=== PATIENT | male | born 1945 | race Caucasian/White ===

== ENCOUNTER → 2022-03-13 08:53 | Outpatient (BNVA) | payer MEDICARE, SELFPAY | PROVIDERS: PCP Internal Medicine; Visit Provider Nurse Practitioner Family | DX: G20 Parkinson's disease (principal); R26.9 Unspecified abnormalities of gait and mobility; R29.898 Other symptoms and signs involving the musculoskeletal system; R20.2 Paresthesia of skin | CPT/HCPCS: 99202 ==

== ENCOUNTER → 2022-08-28 07:48 | Outpatient (BNVA) | payer MEDICARE, SELFPAY | PROVIDERS: PCP Internal Medicine; Visit Provider Nurse Practitioner Family | DX: G20 Parkinson's disease (principal); R26.9 Unspecified abnormalities of gait and mobility; R29.898 Other symptoms and signs involving the musculoskeletal system | CPT/HCPCS: 99212 ==

== ENCOUNTER 2023-02-02 09:46 | Outpatient (AMB) | payer MEDICARE, SELFPAY ==
--- NOTE | 2023-02-02 09:55 | MHC.OFFVIS ---
Intake Vital Signs 02/02/23 10:01 Weight 208 lb BP 120/82 Blood Pressure Location Lt brachial Position Sitting Pulse 67 Pulse Source Pulse Oximeter Pulse Oximetry (%) 97 Oxygen Delivery Method Room Air Intake Visit Reasons: 5m follow up Parkinson's - Confirmed Intake Note: F/U Parkinson Production Trainer Required: No Allergies No Known Allergies Allergy (Verified 02/02/23 09:57) Medication List - Last Reconciled 02/02/23 by ISAEL Renteria aspirin (Adult Low Dose Aspirin) 81 mg PO DAILY carbidopa-levodopa 25-100 mg ER 1 tab PO TID 30 days fluorouracil 5% appl topical BID metoprolol succinate ER 25 mg PO DAILY rasagiline 1 mg PO DAILY 30 days rosuvastatin 10 mg PO BEDTIME tadalafil 20 mg PO [tumeric 2,800 mg PO DAILY] HPI HPI Comments History of Present Illness Details 77 -yr-old male presents for f/u visit. Pt denies any significant interval medical history changes. Pt's current PD medication regimen: CD-LD 25-100mg ER 1 tab tid (am, afternoon, bedtime) Do medication effects last between doses: not sure- may be stiffer/slower after watching TV in the evening, but resolves once he moves around a bit ADL's: Ind- but slow Swallowing/Cough: Coughing at times- usually w/ liquids. Tries to do strategies. Drooling: A bit more drooling Orthostatic lightheadedness: Rare, mild, transient Constipation: Has not needed to use any OTC stool softeners Freezing: Only on stairs or step ladder. Stiffness: Some stiffness- thinks r/t his arthritis Tremor: A bit more tremor in his hands- if say holding something. Falls: None. Legs may be a bit weaker, more difficulty getting up from the ground if playing with his dogs Hallucinations: None Memory: Recently noticing some difficulty recalling- such as not remember a well known lock combination. Sleep: Sleeps ok overall- uses marijuana vape at times Exercise: Could exercise more. Walking and playing basketball. [facility] Medical History (Updated 03/13/22 @ 14:11 by ISAEL Renteria) Chronic back pain Heart disease High cholesterol HTN (hypertension) Tremor Surgical History H/O Spinal surgery Hx of heart artery stent Family History Father Heart disease Mother Heart disease Brother Heart disease Social History (Updated 02/02/23 @ 10:01 by Qi Taylor [facility]) Alcohol intake: never Patient Tobacco Use Status: Never used Tobacco Review of Systems Const All systems reviewed & are unremarkable except as noted in HPI and below Physical Exam Vital Signs: Last Vital Signs Pulse 67 02/02/23 10:01 BP 120/82 02/02/23 10:01 Pulse Ox 97 02/02/23 10:01 Oxygen Delivery Method Room Air 02/02/23 10:01 Const General: cooperative and no acute distress Resp Effort & Inspection: normal respiratory effort and able to speak in complete sentences Neuro Other: Expression: Good expression Voice: Softer Tremor: No significant tremor Tone: Mild LUE tone Dyskinesia: None FFM: LUE mild bradykinesia Foot taps: LLE bradykinesia Gait: Stands slowly, decreased arm swing- more so on left, stride ok, low floor clearance, steady gait. Psych: Pleasant affect General: patient oriented x3 Assessment & Plan Assessment & Plan (1) Parkinson's disease: Code(s): G20 - Parkinson's disease (2) Gait difficulty: Code(s): R26.9 - Unspecified abnormalities of gait and mobility (3) Paresthesia of both feet: Code(s): R20.2 - Paresthesia of skin Plan Continue CD-LD ER 25-100mg 1 tab tid- taken w/ small amt CHO. Conised increasing in f/u. Continue Rasagiline 1mg qd. Past PD Tx trials- Sinemet- caused nausea. Reviewed safe swallwoing strategies- consider TAR DISTRIBUTOR OPERATOR referal- pt declines at this time. Continue playing basketball, walking. Try adding PD specific exercises. Monitor cognition. ?f/u in 6 months or sooner prn. Coding Level of Care Code Est Pt Level 4 (72655) Diagnoses Parkinson's disease G20 Gait difficulty R26.9 Paresthesia of both feet R20.2
[2023-02-02 10:01] VITALS: BP 120/82; PULSE 67; O2SAT 97
== END 2023-02-02 11:04 | disposition home or self-care (01) ==
PROVIDERS: Visit Provider Nurse Practitioner Family
DX: G20 Parkinson's disease (principal); R26.9 Unspecified abnormalities of gait and mobility; R20.2 Paresthesia of skin
CPT/HCPCS: 99214

== ENCOUNTER → 2023-02-02 09:46 | Outpatient (BNVA) | payer MEDICARE, SELFPAY | PROVIDERS: Visit Provider Nurse Practitioner Family | DX: G20 Parkinson's disease (principal); R26.9 Unspecified abnormalities of gait and mobility; R20.2 Paresthesia of skin | CPT/HCPCS: 99212 ==

== ENCOUNTER 2023-08-03 10:40 | Outpatient (AMB) | payer MEDICARE, SELFPAY ==
--- NOTE | 2023-08-03 10:50 | A.OFFVIS_ITS ---
Intake Vital Signs 08/03/23 10:57 Height 5 ft 10 in BP 126/78 Blood Pressure Location Rt brachial Position Sitting Pulse 73 Pulse Source Pulse Oximeter Pulse Oximetry (%) 98 Oxygen Delivery Method Room Air Intake Visit Reasons: 6m follow up Parkinson's-LVM Intake Note: Patient presents for follow up parkinson's. I just want to get a better feel of the background of all this, I just started this new class called rock steady a lot of boxing Allergies No Known Allergies Allergy (Verified 08/03/23 11:00) Medication List - Last Reconciled 08/03/23 by ISAEL Renteria amlodipine 5 mg PO DAILY aspirin (Adult Low Dose Aspirin) 81 mg PO DAILY carbidopa-levodopa 25-100 mg ER 1 tab PO TID 30 days fluorouracil 5% appl topical BID lisinopril 40 mg PO DAILY metoprolol succinate ER 25 mg PO DAILY rasagiline 1 mg PO DAILY 30 days rosuvastatin 10 mg PO BEDTIME tadalafil 20 mg PO [tumeric 2,800 mg PO DAILY] HPI HPI Comments History of Present Illness Details 77 -yr-old male presents for f/u visit. Pt denies any significant interval medical history changes. Pt's current PD medication regimen: CD-LD 25-100mg ER 1 tab tid (am, afternoon, bedtime). Effect ususally lasts between doses, may notice wearing off if very late taking midday dose. ADL's: Ind- but slow Swallowing/Cough: Stable- coughing at times- usually w/ liquids. Tries to do strategies. Drooling: Some drooling Orthostatic lightheadedness: Rare, mild, transient Constipation: Recently had some bad constipation- used MOM which helped. He has since started OTC Mag Citrate cap. Freezing: Not recently Stiffness: Some stiffness. Tremor: Varies- good days and bad days- stress exacerbates tremor. May notice when holding a glass or something. Falls: None. Can be off-balance. Hallucinations: None Memory: Some difficulty recalling. Sleep: Can have some difficulty falling asleep. not using marijuana vape as much. Takes 1 cup of coffee qam. Takes 1/2 nap early afternoon. Wakes up around 7am, bedtime 10:30pm. No TV or electronics in bed. Tries to watch TV until he is tired- sometimes. Trying to make a better bedtime routine- taking shower at bedtime. Exercise: Just started Rock Steady Boxing. Walking and playing basketball. [facility] Medical History (Updated 08/03/23 @ 21:22 by ISAEL Renteria) Parkinson's disease Chronic back pain Tremor High cholesterol HTN (hypertension) Heart disease Surgical History Hx of heart artery stent H/O Spinal surgery Family History Father Heart disease Mother Heart disease Brother Heart disease Social History (Updated 02/02/23 @ 10:01 by Qi Taylor [facility]) Alcohol intake: never Patient Tobacco Use Status: Never used Tobacco Review of Systems Const All systems reviewed & are unremarkable except as noted in HPI and below Physical Exam Vital Signs: Last Vital Signs Pulse 73 08/03/23 10:57 BP 126/78 08/03/23 10:57 Pulse Ox 98 08/03/23 10:57 Oxygen Delivery Method Room Air 08/03/23 10:57 Const General: cooperative and no acute distress Resp Effort & Inspection: normal respiratory effort and able to speak in complete sentences Neuro Other: General: patient oriented x3 Expression: Good expression Voice: Softer Tremor: Mild LUE postural tremor Tone: Mild LUE tone Dyskinesia: None FFM: LUE mild bradykinesia Foot taps: LLE bradykinesia Gait: Stands slowly, decreased arm swing- more so on left, stride ok, low floor clearance- more so on left, steady gait. Psych: Pleasant affect Assessment & Plan Assessment & Plan (1) Parkinson's disease without dyskinesia: Comment: Dx in 2016. DaTscan positive. Code(s): G20.A1 - Parkinson's disease without dyskinesia, without mention of fluctuations (2) Sleep difficulties: Code(s): G47.9 - Sleep disorder, unspecified Plan Continue CD-LD ER 25-100mg 1 tab tid- taken w/ small amt CHO. Continue Rasagiline 1mg qd. For sleep- try staying up until tired, continue optimizing bedtime routine, may try melatonin 3-6mg q evening. Continue safe swallowing strategies. Continue playing basketball, walking. Continue PD exercise class. Monitor cognition. Past PD Tx trials- Sinemet IR- caused nausea. ?f/u in 6 months or sooner prn. Medications: Refilled rasagiline 1 mg PO DAILY 30 tabs 6RF 30 days carbidopa-levodopa 25-100 mg ER take w/ cracker 1 tab PO TID 90 tabs 6RF 30 days Coding Level of Care Code Est Pt Level 4 (80117) Diagnoses Parkinson's disease without dyskinesia G20.A1 Sleep difficulties G47.9
[2023-08-03 10:57] VITALS: BP 126/78; PULSE 73; O2SAT 98
== END 2023-08-03 12:07 | disposition home or self-care (01) ==
PROVIDERS: PCP Internal Medicine; Visit Provider Nurse Practitioner Family
DX: G20.A1 Parkinson's disease without dyskinesia, without mention of fluctuations (principal); G47.9 Sleep disorder, unspecified
CPT/HCPCS: 99214

== ENCOUNTER → 2023-08-03 10:40 | Outpatient (BNVA) | payer MEDICARE, SELFPAY | PROVIDERS: PCP Internal Medicine; Visit Provider Nurse Practitioner Family | DX: G20.A1 Parkinson's disease without dyskinesia, without mention of fluctuations (principal); G47.9 Sleep disorder, unspecified | CPT/HCPCS: 99212 ==

== ENCOUNTER 2024-02-03 10:49 | Outpatient (AMB) | payer MEDICARE, SELFPAY ==
--- NOTE | 2024-02-03 10:59 | A.OFFVIS_ITS ---
Vital Signs 02/03/24 11:01 Height 5 ft 10 in Weight 204 lb BMI 29.3 BP 124/82 Blood Pressure Location Rt brachial Position Sitting Intake Visit Reasons: 6m follow up Parkinson's Intake Note: Patient presents for follow up. things are progressing affecting my balance taking a boxing class for coordination. Allergies No Known Allergies Allergy (Verified 02/03/24 11:03) HPI Comments Details: 78-yr-old male presents for f/u visit for Parkinson's. Pt denies any significant interval medical history changes. Pt does note that his PD is progressing some. He is still having balance difficulties. He has stopped drinking alcohol in the past 1.5 months- as he was niticing being affected more strongly by 1-2 drinks (stronger vodka and juice drink)- where if he drank 2 drinks, he might remember what he was doing. Pt's current PD medication regimen: CD-LD 25-100mg ER 1 tab tid (am, afternoon, bedtime). Rasagiline 1mg qd. Effect usually lasts between doses. If he does miss a midday dose, he has not noticed wearing off. ADL's: Ind- but slow Swallowing/Cough: Coughing a bit more- usually w/ liquids but also solids. Tries to do safe swallowing strategies, which helps. Has not done ELECTRICIAN AIRCRAFT yet. Drooling: Some drooling Orthostatic lightheadedness: Mild, transient. Constipation: Metamucil gummies (3 per day) has been helping constipation. Urinary symptoms: Denies Freezing: Not recently Stiffness: Some stiffness. Tremor: Varies. Leg may shake when standing and talking w/ someone. Stress exacerbates tremor. May notice when holding a glass or something. Falls: One fall, fell going down a couple of steps- thinks he might have missed a step. Hallucinations: None Memory: Noticing a bit more forgetfulness, such as forgetting a password or combination to a lock. He is now keeping a note log of these things. Mood: Some days he can feel down. Denies SI. Feeling a bit more apprehensive about traveling alone- for instance will be traveling to the [facility] to meet up w/ his brothers. Sleep: Varies, but overall ok. May use marijuana sleep gummy prn. Exercise: Continues to do Rock Steady Boxing, which he likes. Walking and playing basketball. [facility] Medical History (Updated 02/03/24 @ 12:36 by ISAEL Renteria) Parkinson's disease Chronic back pain Tremor High cholesterol HTN (hypertension) Heart disease Surgical History Hx of heart artery stent H/O Spinal surgery Family History Father Heart disease Mother Heart disease Brother Heart disease Social History Alcohol intake: never Patient Tobacco Use Status: Never used Tobacco Review of Systems Const All systems reviewed & are unremarkable except as noted in HPI and below Physical Exam Vital Signs: Last Vital Signs BP 124/82 02/03/24 11:01 BMI result Body Mass Index 29.3 Const General: cooperative and no acute distress Resp Effort & Inspection: normal respiratory effort and able to speak in complete sentences Neuro Other: General: patient oriented x3 Expression: Good expression Voice: Softer Tremor: No LUE postural tremor observed today. Mild LLE rest tremor. Tone: Mild LUE tone Dyskinesia: None FFM: LUE mild bradykinesia Foot taps: LLE bradykinesia Gait: Stands slowly, decreased arm swing- more so on left, stride ok, low floor clearance- more so on left, steady gait. Psych: Pleasant affect Assessment & Plan Assessment & Plan (1) Parkinson's disease without dyskinesia: Comment: Dx in 2016. DaTscan positive. Code(s): G20.A1 - Parkinson's disease without dyskinesia, without mention of fluctuations Category: Medical (2) Gait difficulty: Code(s): R26.9 - Unspecified abnormalities of gait and mobility Category: Medical (3) Dysphagia: Code(s): R13.10 - Dysphagia, unspecified Category: Medical Plan Increase CD-LD ER 25-100mg from 1 tab tid to 1 tab QID- taken w/ small amt CHO. In hopes this improves dysphagia, balance, and cognitive s/s. Continue Rasagiline 1mg qd. Monitor sleep. Increase fluids, ass electrolyte replacement beverage 16-20oz per day, such as Gatorade or Liquid IV. Offered referral for MBS and ELECTRICIAN AIRCRAFT eval & tx- pt declines at this time. Continue safe swallowing strategies. Continue playing basketball, walking. Continue PD exercise class. Increase cognitively stimulating activities. Concur w/ alcohol cessation. Monitor cognition. Past PD Tx trials- Sinemet IR- caused nausea. ?f/u in 6 months or sooner prn. Medications: Changed From carbidopa-levodopa 25-100 mg ER take w/ cracker 1 tab PO TID 30 days 90 tabs 6RF To carbidopa-levodopa 25-100 mg ER take w/ cracker 1 tab PO QID 30 days 120 tabs 6RF Refilled rasagiline 1 mg PO DAILY 30 days 30 tabs 6RF Coding Level of Care Code Est Pt Level 4 (76633) Diagnoses Parkinson's disease without dyskinesia G20.A1 Gait difficulty R26.9 Dysphagia R13.10
[2024-02-03 11:01] VITALS: BP 124/82; BMI 29.3
== END 2024-02-03 11:53 | disposition home or self-care (01) ==
PROVIDERS: PCP Hospitalist; Visit Provider Nurse Practitioner Family
DX: G20.A1 Parkinson's disease without dyskinesia, without mention of fluctuations (principal); R26.9 Unspecified abnormalities of gait and mobility; R13.10 Dysphagia, unspecified
CPT/HCPCS: 99214

== ENCOUNTER → 2024-02-03 10:49 | Outpatient (BNVA) | payer MEDICARE, SELFPAY | PROVIDERS: PCP Hospitalist; Visit Provider Nurse Practitioner Family | DX: G20.A1 Parkinson's disease without dyskinesia, without mention of fluctuations (principal); R26.9 Unspecified abnormalities of gait and mobility; R13.10 Dysphagia, unspecified | CPT/HCPCS: 99212 ==

== ENCOUNTER 2024-08-03 13:05 | Outpatient (AMB) | payer OTHER, SELFPAY ==
--- NOTE | 2024-08-03 13:21 | MHC.OFFVIS ---
Vital Signs 08/03/24 13:22 Height 5 ft 10 in Weight 208 lb BMI 29.8 BP 98/70 Blood Pressure Location Lt brachial Position Sitting Pulse 73 Pulse Source Pulse Oximeter Pulse Oximetry (%) 94 Oxygen Delivery Method Room Air Intake Visit Reasons: Follow up Intake Note: Patient presents follow up Parkinson's medication Contracts Director Required: No Accompanied by: Self / Same As Patient Allergies No Known Allergies Allergy (Verified 08/03/24 13:24) Medication List - Last Reconciled 08/03/24 by ISAEL Renteria amlodipine 5 mg PO DAILY aspirin (Adult Low Dose Aspirin) 81 mg PO DAILY carbidopa-levodopa 25-100 mg ER 1 tab PO QID 30 days fluorouracil 5% appl topical BID gabapentin 100 mg PO DAILY lisinopril 40 mg PO DAILY metoprolol succinate ER 25 mg PO DAILY rasagiline 1 mg PO DAILY 30 days rosuvastatin 10 mg PO BEDTIME tadalafil 20 mg PO [tumeric 2,800 mg PO DAILY] HPI Comments Details: 78-yr-old male presents for f/u visit for Parkinson's. Patient states his Parkinson's is overall stable, however is finding himself more easily fatigued and generally weaker even during his routine exercise classes. Pt's current PD medication regimen: CD-LD 25-100mg ER 1 tab tid (am, afternoon, bedtime). Rasagiline 1mg qd. Effect usually lasts between doses. Activities of daily living (ADL's): Independent but slow Instrumental activities of daily living (IADL's): Independent Swallowing difficulty: Reports issues, takes smaller bites and sips, keeps head down while swallowing Cough: Reports frequent coughing during meals Drooling: At night Orthostatic lightheadedness: Occasionally Constipation: Reports occasional issues, uses magnesium citrate rn w/ effectUrinary symptoms: Denies Tremor: Present in left hand, especially without medication Dyskinesia: None Stiffness: Reports muscle weakness, especially in biceps Musculoskeletal symptoms: Reports muscle soreness after exertion Gait difficulties or changes: Denies, but reports feeling more tired Freezing episodes of gait: Denies Falls: Denies Mood difficulties or changes: Reports mood fluctuations, sometimes feels bummed out Hallucinations: Denies Memory difficulties or changes: Denies significant issues, reports normal forgetfulness Sleep difficulties: Reports feeling tired, no significant sleep disturbances Exercise routine: Boxing class twice a week, plays basketball Socialization and cognitive activities: Engages in boxing and basketball 02/03/2024 HPI: Pt denies any significant interval medical history changes. Pt does note that his PD is progressing some. He is still having balance difficulties. He has stopped drinking alcohol in the past 1.5 months- as he was niticing being affected more strongly by 1-2 drinks (stronger vodka and juice drink)- where if he drank 2 drinks, he might remember what he was doing. Pt's current PD medication regimen: CD-LD 25-100mg ER 1 tab tid (am, afternoon, bedtime). Rasagiline 1mg qd. Effect usually lasts between doses. If he does miss a midday dose, he has not noticed wearing off. ADL's: Ind- but slow Swallowing/Cough: Coughing a bit more- usually w/ liquids but also solids. Tries to do safe swallowing strategies, which helps. Has not done NIGHT SHIFT MANAGER yet. Drooling: Some drooling Orthostatic lightheadedness: Mild, transient. Constipation: Metamucil gummies (3 per day) has been helping constipation. Urinary symptoms: Denies Freezing: Not recently Stiffness: Some stiffness. Tremor: Varies. Leg may shake when standing and talking w/ someone. Stress exacerbates tremor. May notice when holding a glass or something. Falls: One fall, fell going down a couple of steps- thinks he might have missed a step. Hallucinations: None Memory: Noticing a bit more forgetfulness, such as forgetting a password or combination to a lock. He is now keeping a note log of these things. Mood: Some days he can feel down. Denies SI. Feeling a bit more apprehensive about traveling alone- for instance will be [facility] to meet up w/ his brothers. Sleep: Varies, but overall ok. May use marijuana sleep gummy prn. Exercise: Continues to do Rock Steady Boxing, which he likes. Walking and playing basketball. [facility] Medical History (Updated 02/03/24 @ 12:36 by ISAEL Renteria) Parkinson's disease Chronic back pain Tremor High cholesterol HTN (hypertension) Heart disease Surgical History Hx of heart artery stent H/O Spinal surgery Family History Father Heart disease Mother Heart disease Brother Heart disease Social History Alcohol intake: never Patient Tobacco Use Status: Never used Tobacco Physical Exam Vital Signs: Last Vital Signs Pulse 73 08/03/24 13:22 BP 98/70 08/03/24 13:22 Pulse Ox 94 08/03/24 13:22 Oxygen Delivery Method Room Air 08/03/24 13:22 BMI result Body Mass Index 29.8 Const General: cooperative and no acute distress Resp Effort & Inspection: normal respiratory effort and able to speak in complete sentences Neuro Other: General: patient oriented x3 Expression: Good expression Voice: Softer Tremor: No LUE postural tremor observed today. Mild LLE rest tremor. Tone: Mild LUE tone Dyskinesia: None FFM: LUE mild bradykinesia Foot taps: LLE bradykinesia Gait: Stands slowly, decreased arm swing- more so on left, stride ok, low floor clearance- more so on left, steady gait. Psych: Pleasant affect Assessment & Plan Assessment & Plan (1) Parkinson's disease without dyskinesia: Comment: Dx in 2016. DaTscan positive. Code(s): G20.A1 - Parkinson's disease without dyskinesia, without mention of fluctuations Category: Medical (2) Gait difficulty: Code(s): R26.9 - Unspecified abnormalities of gait and mobility Category: Medical (3) Dysphagia: Code(s): R13.10 - Dysphagia, unspecified Category: Medical Plan Discussion Notes I discussed with the patient the importance of increasing the carvedopa levodopa dosage from 3 to 4 times a day to manage Parkinson's symptoms better, particularly swallowing difficulties. I am awaiting lab results from the patient's PCP to check for other causes of fatigue, such as vitamin deficiencies. Potential involvement of speech therapy for swallowing issues was noted, as well as the option of a sleep study if sleep disturbances persist. There might be benefit from a swallow study or GI consultation if dysphagia becomes more problematic. The patient should continue current exercises as they provide significant benefits in managing his Parkinson's symptoms. We discussed the importance of continuing social and physical engagement, alongside monitoring mood changes and memory. Plan: Again increase CD-LD ER 25-100mg from 1 tab tid to 1 tab QID- taken w/ small amt CHO. In hopes this improves dysphagia, balance, and cognitive s/s. Continue Rasagiline 1mg qd. Request recent PCP notes and lab results- consider additional lab workup to assess fatigue/weakness upon review or sleep study.. Monitor sleep. Optimize fluid intake with goal of at least 64 oz of fluid per day, including 16-20 oz electrolyte replacement beverage 16-20oz per day, such as Gatorade or Liquid IV. Monitor swallowing difficulty. Patient declines referral for MBS or NIGHT SHIFT MANAGER Tx. Continue safe swallowing strategies. Monitor constipation. Continue bowel regimen. Consider swallow study or GI consult if symptoms worsen. Continue regular physical activity including playing basketball, walking, and PD exercise classes. Monitor cognition. Engage in cognitively stimulating activities. Concur w/ alcohol cessation. Past PD Tx trials- Sinemet IR- caused nausea. ?f/u in 6 months or sooner prn. Coding Level of Care Code Est Pt Level 4 (35764) Diagnoses Parkinson's disease without dyskinesia G20.A1 Gait difficulty R26.9 Dysphagia R13.10
[2024-08-03 13:22] VITALS: BP 98/70; PULSE 73; O2SAT 94; BMI 29.8
--- OUTSIDE RECORDS SUMMARY | 2024-08-03 15:50 | XMS_ITS | Patient Health Record ---
Author Organization [employer] [facility] Address [address] [place] [address] Care Team Providers Care [employer] Officer Name Role Phone AGNES WAHL Primary Care Provider PauljosueJo verdin Unavailable [phone] Allergies No Known Allergies Results Component Value Reference Range Notes PSA (Serial Monitor)-[id number] Reviewed date:12/03/2023 10:19:01 AM Interpretation: Performing Lab:[facility], [address] [place] [address], Phone - [phone], Director - MDJacquelyndry Notes/Report: Prostate Specific Ag 3.2 0.0-4.0 ng/mL Angelito ECLIA methodology. . According to the [place] [employer], Serum PSA should decrease and remain at undetectable levels after radical prostatectomy. The AUA defines biochemical recurrence as an initial PSA value 0.2 ng/mL or greater followed by a subsequent confirmatory PSA value 0.2 ng/mL or greater. Values obtained with different assay methods or kits cannot be used interchangeably. Results cannot be interpreted as absolute evidence of the presence or absence of malignant disease. Lipid Panel-[id number] Reviewed date:12/03/2023 10:19:05 AM Interpretation: Performing Lab:[facility], [address], Phone - [phone], Director - MDJodry Notes/Report: Cholesterol, Total 126 100-199 mg/dL Triglycerides 92 0-149 mg/dL HDL Cholesterol 42 >39 mg/dL VLDL Cholesterol Robb 18 5-40 mg/dL LDL Chol Calc (NIH) 66 0-99 mg/dL Comp. Metabolic Panel (14)-[id number] Reviewed date:12/03/2023 10:19:09 AM Interpretation: Performing Lab:[facility], [address] [place] [address], Phone - [phone], Director - [facility] Notes/Report: Glucose 94 70-99 mg/dL BUN 19 8-27 mg/dL Creatinine 1.15 0.76-1.27 mg/dL eGFR 66 >59 mL/min/1.73 BUN/Creatinine Ratio 17 10-24 Sodium 144 134-144 mmol/L Potassium 4.3 3.5-5.2 mmol/L Chloride 109 96-106 mmol/L Carbon Dioxide, Total 21 20-29 mmol/L Calcium 9.1 8.6-10.2 mg/dL Protein, Total 6.6 6.0-8.5 g/dL Albumin 4.3 3.8-4.8 g/dL Globulin, Total 2.3 1.5-4.5 g/dL Bilirubin, Total 0.5 0.0-1.2 mg/dL Alkaline Phosphatase 80 44-121 IU/L AST (SGOT) 16 0-40 IU/L ALT (SGPT) 5 0-44 IU/L Albumin/Creatinine Ratio,Uri ne-[id number] Reviewed date:12/03/2023 10:19:18 AM Interpretation: Performing Lab:[facility], [address] [place] [address], Phone - [phone], Director - MDdr Notes/Report: Creatinine, Urine 176.9 Not Estab. mg/dL Albumin, Urine 8.9 Not Estab. ug/mL Alb/Creat Ratio 5 0-29 mg/g creat Normal: 0 - 29 Moderately increased: 30 - 300 Severely increased: >300 Homocyst(e)ine-[id number] Reviewed date:02/10/2024 04:42:21 PM Interpretation: Performing Lab:[facility], [address] [place] [address], Phone - [phone], Director - [facility] Notes/Report: Test(s) 802042-Zcrnxnfebctda Acid, Serum was developed and its performance characteristics determined by [facility]. It has not been cleared or approved by the Food and Drug Administration. Homocyst(e)ine 19.2 0.0-19.2 umol/L Methylmalonic Acid, Serum-70 6961 Reviewed date:02/10/2024 09:16:43 PM Interpretation: Performing [facility] [address], Phone - [phone], Director [facility] Notes/Report: Test(s) 791537-Qshowynjhkuhg Acid, Serum was developed and its performance characteristics determined by [facility]. It has not been cleared or approved by the Food and Drug Administration. Methylmalonic Acid, Serum 307 0-378 nmol/L CBC, Platelet, No Differenti al-[id number] Reviewed date:02/10/2024 04:42:04 PM Interpretation: Performing Lab:[facility] [address], Phone - [phone], [facility] Notes/Report: Test(s) 751902-Zyqsnbxywfeao Acid, Serum was developed and its performance characteristics determined by [facility]. It has not been cleared or approved by the Food and Drug Administration. WBC 6.7 3.4-10.8 x10E3/uL RBC 5.31 4.14-5.80 x10E6/uL Hemoglobin 15.0 13.0-17.7 g/dL Hematocrit 45.3 37.5-51.0 % MCV 85 79-97 fL MCH 28.2 26.6-33.0 pg MCHC 33.1 31.5-35.7 g/dL RDW 13.2 11.6-15.4 % Platelets 211 150-450 x10E3/uL Ferritin-[id number] Reviewed date:02/10/2024 04:42:10 PM Interpretation: Performing Lab:[facility] [address], Phone - [phone], [facility] Notes/Report: Test(s) 740243-Maunejzlnqewx Acid, Serum was developed and its performance characteristics determined by [facility]. It has not been cleared or approved by the Food and Drug Administration. Ferritin 72 30-400 ng/mL Magnesium-[id number] Reviewed date:02/10/2024 04:41:28 PM Interpretation: Performing Lab:[facility] [address], Phone - [phone], [facility] Notes/Report: Test(s) 017780-Hdngpeouhtyrs Acid, Serum was developed and its performance characteristics determined by [facility]. It has not been cleared or approved by the Food and Drug Administration. Magnesium 2.0 1.6-2.3 mg/dL Iron and TIBC-[id number] Reviewed date:02/10/2024 04:41:46 PM Interpretation: Performing Lab:[facility] [place], [address] [facility] [place], Phone - [phone], [facility] Notes/Report: Test(s) 606833-Brysiuomlaqna Acid, Serum was developed and its performance characteristics determined by [facility]. It has not been cleared or approved by the Food and Drug Administration. Iron Bind.Cap.(TIBC) 313 250-450 ug/dL UIBC 231 111-343 ug/dL Iron 82 38-169 ug/dL Iron Saturation 26 15-55 % Vitamin B12 and Folate-80702 0 Reviewed date:02/10/2024 04:41:34 PM Interpretation: Performing Lab:[facility] [place], [address] [facility] [place], Phone - [phone], Director - [facility] Notes/Report: Test(s) 202824-Zoyeurkrwkxsg Acid, Serum was developed and its performance characteristics determined by [facility]. It has not been cleared or approved by the Food and Drug Administration. Vitamin B12 931 797-9059 pg/mL Folate (Folic Acid), Serum 6.2 >3.0 ng/mL A serum folate concentration of less than 3.1 ng/mL is considered to represent clinical deficiency. Reason For Referral Reason treat and evaluate Diagnosis 1 Tinea unguium (B35.1 ) Referral Organization [facility] Referring Provider First Name Jo Referring Provider Last Name Alfred Referred Provider Specialty Podiatry General Notes faxed to [facility] , they will contact Karon wiggins Brittney 02/15/2024 02:11:24 PM > Referral Priority Routine Medications Medication SIG (Take, Route, Frequency, Duration) Notes Start Date End Date Status Acyclovir 200 MG 1 capsule Orally Thr ee times a day for 10 days 03/17/2024 Active Lisinopril 40 MG TAKE 1 TABLET BY ROMA TH EVERY DAY for 90 Active Rosuvastatin Calcium 10 MG 1 tablet Oral ly Once a day for 90 days Active Cialis 20 MG 1 tablet as needed O rally Once a day for 30 days 02/17/2024 Active amLODIPine Besylate 5 MG TAKE 1 TABLET B Y MOUTH EVERY DAY for 90 Active Gabapentin 100 MG 1 capsule Orally Onc e a day for 30 days 02/07/2024 Active Tadalafil 20 MG 1 tablet as needed O rally Once a day for 30 days 02/21/2024 Active Rasagiline Mesylate 1 MG 1 tablet Orally Once a day Active Metoprolol Tartrate 25 MG 1 tablet with food Orally Twice a day Active Carbidopa-Levodopa ER 25-100 MG 1 tablet as needed Orally Three times a day Active Aspir-81 Active Immunizations Vaccine Route Administration Date Status Comme nts COVID 19 Pfizer Unknown 07/06/2020 Administered COVID 19 Pfizer Unknown 07/26/2020 Administered COVID 19 Pfizer Unknown 06/12/2021 Administered Flu Unknown 03/12/2020 Administered Flu Unknown 04/22/2021 Administered Flu Unknown 02/20/2023 Administered Flu Unknown 05/03/2019 Administered Flu High-Dose Unknown 02/28/2022 Administered Influenza High Dose Unknown 02/06/2015 Administered Influenza, seasonal, injecta ble (split), for 3 yrs and up Unknown 02/25/2011 Administered Influenza, seasonal, injecta ble (split), for 3 yrs and up Unknown 02/26/2012 Administered Influenza, seasonal, injecta ble (split), for 3 yrs and up Unknown 03/09/2013 Administered Influenza, seasonal, injecta ble (split), for 3 yrs and up Unknown 02/27/2014 Administered Pneumococcal conjugate PCV 13 Unknown 01/27/2017 Admini stered Zoster Unknown 06/28/2014 Administered Problems Problem Type SNOMED Code ICD Code Onset Dates Problem Status W/U Status Risk Notes Problem Mixed hyperlipidemia (486710466) Mixed hyperlipidemia (E78.2) Active confirmed Problem Parkinson's disease (67687895) Parkinson's disease (G20) Active confirmed Problem Atherosclerotic heart disease of [place] coronary artery without angina pectoris (740274432715256) Atherosclerotic heart disease of [place] coronary artery without angina pectoris (I25.10) Active confirmed Problem Degeneration of thoracolumbar intervertebral disc (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) Other intervertebral disc degeneration, thoracolumbar region (M51.35) Active confirmed Problem Essential hypertension (60042196) Essential (primary) hypertension (I10) Active confirmed Problem Neuropathy (384027172) Neuropathy (G62.9) Active confirmed Vital Signs Heart Rate 76 /min 02/07/2024 Temperature 97.3 degrees Fahrenheit 02/07/2024 Blood pressure diastolic 84 mm Hg 02/07/2024 Oximetry 97 % 02/07/2024 Height 69 in 02/07/2024 Blood pressure systolic 124 mm Hg 02/07/2024 Weight 204 lbs 02/07/2024 BMI 30.12 kg/m2 02/07/2024 Encounters Encounter Location Date Provider Diagnosis [facility] [address] [place] [address] 11/26/2023 VISH ALARCON Essential (primary) hypertension I10 ; Atherosclerotic heart disease of [place] coronary artery without angina pectoris I25.10 ; Mixed hyperlipidemia E78.2 ; Parkinson's disease G20 and Encounter for screening for malignant neoplasm of prostate Z12.5 [facility] [address] [place] [address] 02/07/2024 Jo Simon Atherosclerotic hear t disease of [place] coronary artery without angina pectoris I25.10 ; Encounter for general adult medical examination without abnormal findings Z00.00 ; Essential (primary) hypertension I10 ; Mixed hyperlipidemia E78.2 ; Parkinson's disease without dyskinesia, without mention of fluctuations G20.A1 ; Neuropathy G62.9 ; Depression, unspecified F32.A ; Encounter for screening for malignant neoplasm of prostate Z12.5 and Tinea unguium B35.1 [facility] [address] [place] [address] 09/09/2023 [facility] [address] [place] [address] 09/30/2023 [facility] [address] [place] [address] 11/29/2023 [facility] [address] [place] [address] 12/21/2023 [facility] [address] [place] [address] 02/17/2024 [facility] [address] [place] [address] 02/21/2024 [facility] [address] [place] [address] 02/22/2024 [facility] [address] [place] [address] 03/17/2024 [facility] Assessments Encounter Date Diagnosis (ICD Code) Assessment Notes Treatment Notes Treatment Clinical Notes Section Notes 11/26/2023 Atherosclerotic heart disease of [place] coronary artery without angina pectoris (ICD-10 - I25.10) Mr Castro is a 78-year-old gentleman with Parkinson's disease, hypertension, hyperlipidemia and coronary artery disease s/p stent placement x 2 (2015 & 2017); follows up with Cardiology here for follow up. Plan is as follows: Hypertension. Blood pressure well controlled on current regimen. Hyperlipidemia. Continue Rosuvastatin 10 MG once a day. Parkinson's disease. Stable on carbidopa levodopa and Rasagiline 1 MG once a day. He follows up with Neurology. CAD. s/p stent placement x 2. He is stable at this point and he is on right medications. He follows up with Cardiology. Screening blood work before next appointment. General health concerns discussed with patient. Scribe services used to formulate this note under HIPAA compliance and under [place] law mandated for scribe services. Patient aware of service. Verbal consent and written consent taken from the patient. Patient understands and verbalizes understanding of the scribes services and all questions answered regarding scribes services. Patient agrees to use of scribes services. 11/26/2023 Essential (primary) hypertension (ICD-10 - I10) Mr Castro is a 78-year-old gentleman with Parkinson's disease, hypertension, hyperlipidemia and coronary artery disease s/p stent placement x 2 (2015 & 2017); follows up with Cardiology here for follow up. Plan is as follows: Hypertension. Blood pressure well controlled on current regimen. Hyperlipidemia. Continue Rosuvastatin 10 MG once a day. Parkinson's disease. Stable on carbidopa levodopa and Rasagiline 1 MG once a day. He follows up with Neurology. CAD. s/p stent placement x 2. He is stable at this point and he is on right medications. He follows up with Cardiology. Screening blood work before next appointment. General health concerns discussed with patient. Scribe services used to formulate this note under HIPAA compliance and under [place] law mandated for scribe services. Patient aware of service. Verbal consent and written consent taken from the patient. Patient understands and verbalizes understanding of the scribes services and all questions answered regarding scribes services. Patient agrees to use of scribes services. 02/07/2024 Atherosclerotic heart disease of [place] coronary artery without angina pectoris (ICD-10 - I25.10) Mr Castro is a 78-year-old gentleman with Parkinson's disease, hypertension, hyperlipidemia and coronary artery disease s/p stent placement x 2 (2016 & 2018); follows up with Cardiology here for annual physical examination. Plan is as follows: Hypertension. -Blood pressure well controlled on current regimen. - EKG is done in the office today. HR of 58bpm, Sinus rhythm. NO ST elevation/depress ion. No BBB. Hyperlipidemia. -Continue Rosuvastatin 10 MG once a day. Parkinson's disease. -Stable on carbidopa levodopa and Rasagiline 1 MG once a day. He follows up with Neurology. CAD. s/p stent placement x 2. -He is stable at this point and he is on right medications. He follows up with Cardiology. Neuropathy: - Denies claudication. Ongoing for the past year and it has been progressing. Tibial pulse and dorsal pulse are 1+ BL. No clubbing, cyanosis of BL foot. No foot drop. He declines EMG. We will check Vitamin B12, folate, MMA, CBC for underlying causes. Started patient on Low dose gabapentin and we will titrate it up. Depression: - PHQ-9 of 12. No SI. Advised patient on lifestyle modification. Advised on following-up with a therapist. Discussed starting on anti-depressants, he defers that for now. Encounter for screening for Malignant Neoplasm of prostate: - No urinary sxs. PSA is normal. Defers LULU. Tinea Unguium: - Noted on the right toes. Referred to podiatry Screening blood work before next appointment. He is UTD on screening and vaccinations His healthcare proxy is Julia and he is full code I have rendered the services for this patient under direct supervision of Dr. Alarcon, who did not see the patient but was available upon request 02/07/2024 Encounter for general adult medical examination without abnormal findings (ICD-10 - Z00.00) Mr Castro is a 78-year-old gentleman with Parkinson's disease, hypertension, hyperlipidemia and coronary artery disease s/p stent placement x 2 (2015 & 2018); follows up with Cardiology here for annual physical examination. Plan is as follows: Hypertension. -Blood pressure well controlled on current regimen. - EKG is done in the office today. HR of 58bpm, Sinus rhythm. NO ST elevation/depress ion. No BBB. Hyperlipidemia. -Continue Rosuvastatin 10 MG once a day. Parkinson's disease. -Stable on carbidopa levodopa and Rasagiline 1 MG once a day. He follows up with Neurology. CAD. s/p stent placement x 2. -He is stable at this point and he is on right medications. He follows up with Cardiology. Neuropathy: - Denies claudication. Ongoing for the past year and it has been progressing. Tibial pulse and dorsal pulse are 1+ BL. No clubbing, cyanosis of BL foot. No foot drop. He declines EMG. We will check Vitamin B12, folate, MMA, CBC for underlying causes. Started patient on Low dose gabapentin and we will titrate it up. Depression: - PHQ-9 of 12. No SI. Advised patient on lifestyle modification. Advised on following-up with a therapist. Discussed starting on anti-depressants, he defers that for now. Encounter for screening for Malignant Neoplasm of prostate: - No urinary sxs. PSA is normal. Defers LULU. Tinea Unguium: - Noted on the right toes. Referred to podiatry Screening blood work before next appointment. He is UTD on screening and vaccinations His healthcare proxy is Julia and he is full code I have rendered the services for this patient under direct supervision of Dr. Alarcon, who did not see the patient but was available upon request 02/07/2024 Essential (primary) hypertension (ICD-10 - I10) Mr Castro is a 78-year-old gentleman with Parkinson's disease, hypertension, hyperlipidemia and coronary artery disease s/p stent placement x 2 (2015 & 2018); follows up with Cardiology here for annual physical examination. Plan is as follows: Hypertension. -Blood pressure well controlled on current regimen. - EKG is done in the office today. HR of 58bpm, Sinus rhythm. NO ST elevation/depress ion. No BBB. Hyperlipidemia. -Continue Rosuvastatin 10 MG once a day. Parkinson's disease. -Stable on carbidopa levodopa and Rasagiline 1 MG once a day. He follows up with Neurology. CAD. s/p stent placement x 2. -He is stable at this point and he is on right medications. He follows up with Cardiology. Neuropathy: - Denies claudication. Ongoing for the past year and it has been progressing. Tibial pulse and dorsal pulse are 1+ BL. No clubbing, cyanosis of BL foot. No foot drop. He declines EMG. We will check Vitamin B12, folate, MMA, CBC for underlying causes. Started patient on Low dose gabapentin and we will titrate it up. Depression: - PHQ-9 of 12. No SI. Advised patient on lifestyle modification. Advised on following-up with a therapist. Discussed starting on anti-depressants, he defers that for now. Encounter for screening for Malignant Neoplasm of prostate: - No urinary sxs. PSA is normal. Defers LULU. Tinea Unguium: - Noted on the right toes. Referred to podiatry Screening blood work before next appointment. He is UTD on screening and vaccinations His healthcare proxy is Julia and he is full code I have rendered the services for this patient under direct supervision of Dr. Alarcon, who did not see the patient but was available upon request 11/26/2023 Mixed hyperlipidemia (ICD-10 - E78.2) Mr Castro is a 78-year-old gentleman with Parkinson's disease, hypertension, hyperlipidemia and coronary artery disease s/p stent placement x 2 (2016 & 2018); follows up with Cardiology here for follow up. Plan is as follows: Hypertension. Blood pressure well controlled on current regimen. Hyperlipidemia. Continue Rosuvastatin 10 MG once a day. Parkinson's disease. Stable on carbidopa levodopa and Rasagiline 1 MG once a day. He follows up with Neurology. CAD. s/p stent placement x 2. He is stable at this point and he is on right medications. He follows up with Cardiology. Screening blood work before next appointment. General health concerns discussed with patient. Scribe services used to formulate this note under HIPAA compliance and under [place] law mandated for scribe services. Patient aware of service. Verbal consent and written consent taken from the patient. Patient understands and verbalizes understanding of the scribes services and all questions answered regarding scribes services. Patient agrees to use of scribes services. 11/26/2023 Parkinson's disease (ICD-10 - G20) Mr Castro is a 78-year-old gentleman with Parkinson's disease, hypertension, hyperlipidemia and coronary artery disease s/p stent placement x 2 (2015 & 2017); follows up with Cardiology here for follow up. Plan is as follows: Hypertension. Blood pressure well controlled on current regimen. Hyperlipidemia. Continue Rosuvastatin 10 MG once a day. Parkinson's disease. Stable on carbidopa levodopa and Rasagiline 1 MG once a day. He follows up with Neurology. CAD. s/p stent placement x 2. He is stable at this point and he is on right medications. He follows up with Cardiology. Screening blood work before next appointment. General health concerns discussed with patient. Scribe services used to formulate this note under HIPAA compliance and under [place] law mandated for scribe services. Patient aware of service. Verbal consent and written consent taken from the patient. Patient understands and verbalizes understanding of the scribes services and all questions answered regarding scribes services. Patient agrees to use of scribes services. 02/07/2024 Mixed hyperlipidemia (ICD-10 - E78.2) Mr Castro is a 78-year-old gentleman with Parkinson's disease, hypertension, hyperlipidemia and coronary artery disease s/p stent placement x 2 (2015 & 2017); follows up with Cardiology here for annual physical examination. Plan is as follows: Hypertension. -Blood pressure well controlled on current regimen. - EKG is done in the office today. HR of 58bpm, Sinus rhythm. NO ST elevation/depress ion. No BBB. Hyperlipidemia. -Continue Rosuvastatin 10 MG once a day. Parkinson's disease. -Stable on carbidopa levodopa and Rasagiline 1 MG once a day. He follows up with Neurology. CAD. s/p stent placement x 2. -He is stable at this point and he is on right medications. He follows up with Cardiology. Neuropathy: - Denies claudication. Ongoing for the past year and it has been progressing. Tibial pulse and dorsal pulse are 1+ BL. No clubbing, cyanosis of BL foot. No foot drop. He declines EMG. We will check Vitamin B12, folate, MMA, CBC for underlying causes. Started patient on Low dose gabapentin and we will titrate it up. Depression: - PHQ-9 of 12. No SI. Advised patient on lifestyle modification. Advised on following-up with a therapist. Discussed starting on anti-depressants, he defers that for now. Encounter for screening for Malignant Neoplasm of prostate: - No urinary sxs. PSA is normal. Defers LULU. Tinea Unguium: - Noted on the right toes. Referred to podiatry Screening blood work before next appointment. He is UTD on screening and vaccinations His healthcare proxy is Julia and he is full code I have rendered the services for this patient under direct supervision of Dr. Alarcon, who did not see the patient but was available upon request 02/07/2024 Parkinson's disease without dyskinesia, without mention of fluctuations (ICD-10 - G20.A1) Mr Castro is a 78-year-old gentleman with Parkinson's disease, hypertension, hyperlipidemia and coronary artery disease s/p stent placement x 2 (2016 & 2018); follows up with Cardiology here for annual physical examination. Plan is as follows: Hypertension. -Blood pressure well controlled on current regimen. - EKG is done in the office today. HR of 58bpm, Sinus rhythm. NO ST elevation/depress ion. No BBB. Hyperlipidemia. -Continue Rosuvastatin 10 MG once a day. Parkinson's disease. -Stable on carbidopa levodopa and Rasagiline 1 MG once a day. He follows up with Neurology. CAD. s/p stent placement x 2. -He is stable at this point and he is on right medications. He follows up with Cardiology. Neuropathy: - Denies claudication. Ongoing for the past year and it has been progressing. Tibial pulse and dorsal pulse are 1+ BL. No clubbing, cyanosis of BL foot. No foot drop. He declines EMG. We will check Vitamin B12, folate, MMA, CBC for underlying causes. Started patient on Low dose gabapentin and we will titrate it up. Depression: - PHQ-9 of 12. No SI. Advised patient on lifestyle modification. Advised on following-up with a therapist. Discussed starting on anti-depressants, he defers that for now. Encounter for screening for Malignant Neoplasm of prostate: - No urinary sxs. PSA is normal. Defers LULU. Tinea Unguium: - Noted on the right toes. Referred to podiatry Screening blood work before next appointment. He is UTD on screening and vaccinations His healthcare proxy is Julia and he is full code I have rendered the services for this patient under direct supervision of Dr. Alarcon, who did not see the patient but was available upon request 11/26/2023 Encounter for screening for malignant neoplasm of prostate (ICD-10 - Z12.5) Mr Castro is a 78-year-old gentleman with Parkinson's disease, hypertension, hyperlipidemia and coronary artery disease s/p stent placement x 2 (2015 & 2017); follows up with Cardiology here for follow up. Plan is as follows: Hypertension. Blood pressure well controlled on current regimen. Hyperlipidemia. Continue Rosuvastatin 10 MG once a day. Parkinson's disease. Stable on carbidopa levodopa and Rasagiline 1 MG once a day. He follows up with Neurology. CAD. s/p stent placement x 2. He is stable at this point and he is on right medications. He follows up with Cardiology. Screening blood work before next appointment. General health concerns discussed with patient. Scribe services used to formulate this note under HIPAA compliance and under [place] law mandated for scribe services. Patient aware of service. Verbal consent and written consent taken from the patient. Patient understands and verbalizes understanding of the scribes services and all questions answered regarding scribes services. Patient agrees to use of scribes services. 02/07/2024 Neuropathy (ICD-10 - G62.9) Mr Castro is a 78-year-old gentleman with Parkinson's disease, hypertension, hyperlipidemia and coronary artery disease s/p stent placement x 2 (2015 & 2017); follows up with Cardiology here for annual physical examination. Plan is as follows: Hypertension. -Blood pressure well controlled on current regimen. - EKG is done in the office today. HR of 58bpm, Sinus rhythm. NO ST elevation/depress ion. No BBB. Hyperlipidemia. -Continue Rosuvastatin 10 MG once a day. Parkinson's disease. -Stable on carbidopa levodopa and Rasagiline 1 MG once a day. He follows up with Neurology. CAD. s/p stent placement x 2. -He is stable at this point and he is on right medications. He follows up with Cardiology. Neuropathy: - Denies claudication. Ongoing for the past year and it has been progressing. Tibial pulse and dorsal pulse are 1+ BL. No clubbing, cyanosis of BL foot. No foot drop. He declines EMG. We will check Vitamin B12, folate, MMA, CBC for underlying causes. Started patient on Low dose gabapentin and we will titrate it up. Depression: - PHQ-9 of 12. No SI. Advised patient on lifestyle modification. Advised on following-up with a therapist. Discussed starting on anti-depressants, he defers that for now. Encounter for screening for Malignant Neoplasm of prostate: - No urinary sxs. PSA is normal. Defers LULU. Tinea Unguium: - Noted on the right toes. Referred to podiatry Screening blood work before next appointment. He is UTD on screening and vaccinations His healthcare proxy is Julia and he is full code I have rendered the services for this patient under direct supervision of Dr. Alarcon, who did not see the patient but was available upon request 02/07/2024 Depression, unspecified (ICD-10 - F32.A) Mr Castro is a 78-year-old gentleman with Parkinson's disease, hypertension, hyperlipidemia and coronary artery disease s/p stent placement x 2 (2016 & 2018); follows up with Cardiology here for annual physical examination. Plan is as follows: Hypertension. -Blood pressure well controlled on current regimen. - EKG is done in the office today. HR of 58bpm, Sinus rhythm. NO ST elevation/depress ion. No BBB. Hyperlipidemia. -Continue Rosuvastatin 10 MG once a day. Parkinson's disease. -Stable on carbidopa levodopa and Rasagiline 1 MG once a day. He follows up with Neurology. CAD. s/p stent placement x 2. -He is stable at this point and he is on right medications. He follows up with Cardiology. Neuropathy: - Denies claudication. Ongoing for the past year and it has been progressing. Tibial pulse and dorsal pulse are 1+ BL. No clubbing, cyanosis of BL foot. No foot drop. He declines EMG. We will check Vitamin B12, folate, MMA, CBC for underlying causes. Started patient on Low dose gabapentin and we will titrate it up. Depression: - PHQ-9 of 12. No SI. Advised patient on lifestyle modification. Advised on following-up with a therapist. Discussed starting on anti-depressants, he defers that for now. Encounter for screening for Malignant Neoplasm of prostate: - No urinary sxs. PSA is normal. Defers LULU. Tinea Unguium: - Noted on the right toes. Referred to podiatry Screening blood work before next appointment. He is UTD on screening and vaccinations His healthcare proxy is Julia and he is full code I have rendered the services for this patient under direct supervision of Dr. Alarcon, who did not see the patient but was available upon request 02/07/2024 Encounter for screening for malignant neoplasm of prostate (ICD-10 - Z12.5) Mr Castro is a 78-year-old gentleman with Parkinson's disease, hypertension, hyperlipidemia and coronary artery disease s/p stent placement x 2 (2016 & 2018); follows up with Cardiology here for annual physical examination. Plan is as follows: Hypertension. -Blood pressure well controlled on current regimen. - EKG is done in the office today. HR of 58bpm, Sinus rhythm. NO ST elevation/depress ion. No BBB. Hyperlipidemia. -Continue Rosuvastatin 10 MG once a day. Parkinson's disease. -Stable on carbidopa levodopa and Rasagiline 1 MG once a day. He follows up with Neurology. CAD. s/p stent placement x 2. -He is stable at this point and he is on right medications. He follows up with Cardiology. Neuropathy: - Denies claudication. Ongoing for the past year and it has been progressing. Tibial pulse and dorsal pulse are 1+ BL. No clubbing, cyanosis of BL foot. No foot drop. He declines EMG. We will check Vitamin B12, folate, MMA, CBC for underlying causes. Started patient on Low dose gabapentin and we will titrate it up. Depression: - PHQ-9 of 12. No SI. Advised patient on lifestyle modification. Advised on following-up with a therapist. Discussed starting on anti-depressants, he defers that for now. Encounter for screening for Malignant Neoplasm of prostate: - No urinary sxs. PSA is normal. Defers LULU. Tinea Unguium: - Noted on the right toes. Referred to podiatry Screening blood work before next appointment. He is UTD on screening and vaccinations His healthcare proxy is Julia and he is full code I have rendered the services for this patient under direct supervision of Dr. Alarcon, who did not see the patient but was available upon request 02/07/2024 Tinea unguium (ICD-10 - B35.1) Mr Castro is a 78-year-old gentleman with Parkinson's disease, hypertension, hyperlipidemia and coronary artery disease s/p stent placement x 2 (2016 & 2018); follows up with Cardiology here for annual physical examination. Plan is as follows: Hypertension. -Blood pressure well controlled on current regimen. - EKG is done in the office today. HR of 58bpm, Sinus rhythm. NO ST elevation/depress ion. No BBB. Hyperlipidemia. -Continue Rosuvastatin 10 MG once a day. Parkinson's disease. -Stable on carbidopa levodopa and Rasagiline 1 MG once a day. He follows up with Neurology. CAD. s/p stent placement x 2. -He is stable at this point and he is on right medications. He follows up with Cardiology. Neuropathy: - Denies claudication. Ongoing for the past year and it has been progressing. Tibial pulse and dorsal pulse are 1+ BL. No clubbing, cyanosis of BL foot. No foot drop. He declines EMG. We will check Vitamin B12, folate, MMA, CBC for underlying causes. Started patient on Low dose gabapentin and we will titrate it up. Depression: - PHQ-9 of 12. No SI. Advised patient on lifestyle modification. Advised on following-up with a therapist. Discussed starting on anti-depressants, he defers that for now. Encounter for screening for Malignant Neoplasm of prostate: - No urinary sxs. PSA is normal. Defers LULU. Tinea Unguium: - Noted on the right toes. Referred to podiatry Screening blood work before next appointment. He is UTD on screening and vaccinations His healthcare proxy is uJlia and he is full code I have rendered the services for this patient under direct supervision of Dr. Alarcon, who did not see the patient but was available upon request Plan Of Treatment Pending Test Test Name Order Date CBC/Differential (No Platelet)-[id number] Next Appt Details Provider Name:Jo woody, 08/22/2024 09:00:00 AM, [address] [place] [address], [place], [address], Insurance Providers Payer Name Payer Address Payer Phone Subscriber Number Group Number Insured Name Patient Relationship to Insured Coverage Start Date Coverage End Date Medicare [address] MICHELINE SAENZ [phone] [id number] Stanislav Castro Self - patient is the insured Medical (General) History Medical History History ICD Code hypertension hyperlipidemia parkinson's disease coronary artery disease s/p stent placem ent x 2, 2016 & 2018 Surgical History Surgery Date(Month/Year) hiatal hernia repair 2002 back surgery x 2 at [facility] Hospitalization History Reason Date(Month/Year) surgeries
--- OUTSIDE RECORDS SUMMARY | 2024-08-03 15:50 | XMS_ITS ---
Author Organization [facility] Address [address] [place] [phone] Care Team Providers Care Buttonhole Tacker Name Role Phone VISH ALARCON Primary Care Provider [phone] REASON FOR VISIT Acyclovir Refill Medications Medication SIG (Take, Route, Fr equency, Duration) Notes Start Date End Date Status Acyclovir 200 MG 1 capsule Orally Thr ee times a day for 10 days 03/17/2024 Active Encounters Encounter Location Date Provider Diagnosis [facility] [address] [address] 03/17/2024 VISH ALARCON Plan Of Treatment Medication Medication Name Sig Start Date Stop Date Notes Acyclovir 200 MG 1 capsule Orally Thr ee times a day for 10 days 03/17/2024 Next Appt Details Provider Name:Jo woody, 08/22/2024 09:00:00 AM, [address] [place] [address], [place], [address], Progress Notes * Stanislav CROUCHDOB: [birth year] (78 yo M)Acc No.[id number]:03/17/2024 Patient:?Stanislav CROUCH :1945???Age:78 Y???Sex:Male Address:[address] [place] [address] * Refills? Start Acyclovir Capsule, 200 MG, Orally, 30, 1 capsule, Three times a day, 10 days, Refills=3 * true * Date:? Generated for Printi ng/Famarlog/eTransmitting on:?08/03/2024 03:50 PM EST
--- OUTSIDE RECORDS SUMMARY | 2024-08-03 15:50 | XMS_ITS ---
Author Organization [facility] Address [address] [address] Care Team Providers Care Jerker Name Role Phone VISH ALARCON Primary Care Provider REASON FOR VISIT refill Medications Medication SIG (Take, Route, Fr equency, Duration) Notes Start Date End Date Status Tadalafil 20 MG 1 tablet as needed O rally Once a day for 30 days 02/21/2024 Active Encounters Encounter Location Date Provider Diagnosis [facility] [address] [address] 02/21/2024 VISH ALARCON Plan Of Treatment Medication Medication Name Sig Start Date Stop Date Notes Tadalafil 20 MG 1 tablet as needed O rally Once a day for 30 days 02/21/2024 Next Appt Details Provider Name:Jo Millerroya woody, 08/22/2024 09:00:00 AM, [address] [place] [address], [place], [phone], Progress Notes * Stanislav CASTRODOB: [birth year] (78 yo M)Acc No.[id number]:02/21/2024 Patient:?Stanislav CASTRO :1945???Age:78 Y???Sex:Male Address:[address] [place] [address] * Refills? Start Tadalafil Tablet, 20 MG, Orally, 10, 1 tablet as needed, Once a day, 30 days, Refills=3 * true * Date:? Generated for Manolo rothman/Luke/eTransmitting on:?08/03/2024 03:49 PM EST
--- OUTSIDE RECORDS SUMMARY | 2024-08-03 15:50 | XMS_ITS ---
Author Organization [facility] Address [address] [address] Care Team Providers Care Roll Scale Worker Name Role Phone VISH ALARCON Primary Care Provider REASON FOR VISIT Rx Medications Medication SIG (Take, Route, Fr equency, Duration) Notes Start Date End Date Status Tadalafil 20 MG 1 tablet as needed O rally Once a day for 30 days 02/21/2024 Active Encounters Encounter Location Date Provider Diagnosis [facility] [address] [address] 02/22/2024 VISH ALARCON Plan Of Treatment Medication Medication Name Sig Start Date Stop Date Notes Tadalafil 20 MG 1 tablet as needed O rally Once a day for 30 days 02/21/2024 Next Appt Details Provider Name:Jo Millerjosueadali annalise, 08/22/2024 09:00:00 AM, [address] [place] [address], [place], [address], Progress Notes * Stanislav CASTRODOB: [birth year] (78 yo M)Acc No.[id number]:02/22/2024 Patient:?Stanislav CASTRO :1945???Age:78 Y???Sex:Male Address:[address] [place] [address] * Refills? Refill Tadalafil Tablet, 20 MG, Orally, 10, 1 tablet as needed, Once a day, 30 days, Refills=3 * true * Date:? Generated for Manolo rothman/Luke/eTransmitting on:?08/03/2024 03:50 PM EST
== END 2024-08-03 14:09 | disposition home or self-care (01) ==
PROVIDERS: PCP Hospitalist; Visit Provider Nurse Practitioner Family
DX: G20.A1 Parkinson's disease without dyskinesia, without mention of fluctuations (principal); R26.9 Unspecified abnormalities of gait and mobility; R13.10 Dysphagia, unspecified
CPT/HCPCS: 99214

== ENCOUNTER → 2024-08-03 13:05 | Outpatient (BNVA) | payer OTHER, SELFPAY | PROVIDERS: PCP Hospitalist; Visit Provider Nurse Practitioner Family ==

== ENCOUNTER 2025-01-31 10:28 | Outpatient (AMB) | payer OTHER, SELFPAY ==
[2025-01-31 10:40] VITALS: BP 100/60; PULSE 97; O2SAT 95; BMI 29.1
--- NOTE | 2025-01-31 10:40 | MHC.OFFVIS ---
Vital Signs 01/31/25 10:40 Height 5 ft 10 in Weight 203 lb BMI 29.1 BP 100/60 Blood Pressure Location Lt brachial Position Sitting Pulse 97 Pulse Source Pulse Oximeter Pulse Oximetry (%) 95 Oxygen Delivery Method Room Air Intake Visit Reasons: 6 mnts Intake Note: Patient presents follow up Parkinson's medication Supervisor Labor Gang Required: No Accompanied by: Self / Same As Patient Allergies No Known Allergies Allergy (Verified 01/31/25 10:43) Medication List - Last Reconciled 01/31/25 by ISAEL Renteria amlodipine 5 mg PO DAILY aspirin (Adult Low Dose Aspirin) 81 mg PO DAILY carbidopa-levodopa 25-100 mg ER 1 tab PO QID 30 days fluorouracil 5% appl topical BID gabapentin 100 mg PO DAILY lisinopril 40 mg PO DAILY metoprolol succinate ER 25 mg PO DAILY rasagiline 1 mg PO DAILY 30 days rosuvastatin 10 mg PO BEDTIME tadalafil 20 mg PO [tumeric 2,800 mg PO DAILY] HPI Comments Details: 79-yr-old male presents for f/u visit for Parkinson's. He is feeling better since last visit when he increased the CD-LD, but notices that his PD is progressing, and thus is he is wondering of he should have a Datscan. Pt's current PD medication regimen: CD-LD 25-100mg ER 1 tab Qid (am, afternoon, bedtime). Rasagiline 1mg qd. Effect usually lasts between doses. Activities of daily living (ADL's): Independent but slow Instrumental activities of daily living (IADL's): Independent Swallowing difficulty: Reports issues, takes smaller bites and sips, keeps head down while swallowing. He has not yet done [employer]. Cough: Reports coughing during meals Drooling: At night Orthostatic lightheadedness: Occasionally Constipation: Reports occasional issues, uses prn tx's Urinary symptoms: Denies Tremor: More noticeable in left hand/arm, started in left leg Dyskinesia: None Stiffness: stiffness in the am or after sitting for > 30 min- has a h/o back surgeries Musculoskeletal symptoms: Reports muscle soreness after exertion Gait difficulties or changes: May shuffle at homes, tries to intentionally stand upright and take longer steps. At times, may feel like he has to be conscious to make himself steady Freezing episodes of gait: Denies Falls: Denies Mood difficulties or changes: Reports mood fluctuations, sometimes feels bummed out Hallucinations: Denies Memory difficulties or changes: Occasional forgetfulness- forgets why he went into a room Sleep difficulties: Sleeping ok Exercise routine: Boxing class twice a week, plays basketball Socialization and cognitive activities: Engages in boxing and basketball [facility] Medical History (Updated 01/31/25 @ 11:47 by ISAEL Renteria) Parkinson's disease Chronic back pain Tremor High cholesterol HTN (hypertension) Heart disease Surgical History Hx of heart artery stent H/O Spinal surgery Family History Father Heart disease Mother Heart disease Brother Heart disease Social History Alcohol intake: never Patient Tobacco Use Status: Never used Tobacco Physical Exam Vital Signs: Last Vital Signs Pulse 97 01/31/25 10:40 BP 100/60 01/31/25 10:40 Pulse Ox 95 01/31/25 10:40 Oxygen Delivery Method Room Air 01/31/25 10:40 BMI result Body Mass Index 29.1 Const General: cooperative and no acute distress Resp Effort & Inspection: normal respiratory effort and able to speak in complete sentences Neuro Other: General: patient oriented x3 Expression: Good expression Voice: Softer Tremor: No LUE postural tremor observed today. Mild LLE rest tremor. Tone: Mild LUE tone Dyskinesia: None FFM: LUE mild bradykinesia Foot taps: LLE bradykinesia Gait: Stands slowly, decreased arm swing- more so on left, slight stoop in shoulders, stride ok, low floor clearance, steady gait. Psych: Pleasant affect Assessment & Plan Assessment & Plan (1) Parkinson's disease without dyskinesia: Comment: Dx in 2016. DaTscan positive. Code(s): G20.A1 - Parkinson's disease without dyskinesia, without mention of fluctuations Category: Medical Qualifiers: Fluctuating manifestations: without fluctuating manifestations Qualified Code(s): G20.A1 - Parkinson's disease without dyskinesia, without mention of fluctuations (2) Gait difficulty: Code(s): R26.9 - Unspecified abnormalities of gait and mobility Category: Medical (3) Dysphagia: Code(s): R13.10 - Dysphagia, unspecified Category: Medical Qualifiers: Dysphagia type: unspecified Qualified Code(s): R13.10 - Dysphagia, unspecified Plan Pt advised to undergo Datscan. Continue CD-LD ER 25-100mg from 1 tab tid to 1 tab QID- taken w/ small amt CHO. In hopes this improves dysphagia, balance, and cognitive s/s. Continue Rasagiline 1mg qd. Request recent PCP notes and lab results- consider additional lab workup to assess fatigue/weakness upon review or sleep study.. Monitor sleep. Optimize fluid intake with goal of at least 64 oz of fluid per day, including 16-20 oz electrolyte replacement beverage 16-20oz per day, such as Gatorade or Liquid IV. Monitor swallowing difficulty. Patient declines referral for MBS or [employer] Tx. Continue safe swallowing strategies. Monitor constipation. Continue bowel regimen. Continue regular physical activity including playing basketball, walking, and PD exercise classes. Monitor cognition. Engage in cognitively stimulating activities. Concur w/ alcohol cessation. Past PD Tx trials- Sinemet IR- caused nausea. Will follow-up upon review of above and patient to follow-up in clinic in 6 months or sooner prn. Orders: Orders DaTscan Today G20.A1 - Parkinson's disease without dyskinesia, without mention of fluctuations, R13.10 - Dysphagia, unspecified, R26.9 - Unspecified abnormalities of gait and mobility Coding Level of Care Code Est Pt Level 4 (73588) Diagnoses Parkinson's disease without dyskinesia or fluctuating manifestations G20.A1 Fluctuating manifestations: without fluctuating manifestations Gait difficulty R26.9 Dysphagia, unspecified type R13.10 Dysphagia type: unspecified
--- OUTSIDE RECORDS SUMMARY | 2025-01-31 12:14 | XMS_ITS ---
Author Name [facility] Organization Unknown Care Team Organization Name Specialty Phone Email Start Date End Da te [facility] Yarelis Crabtree Primary [facility]08[facility]2024 [facility] 11/10/2024 025
== END 2025-01-31 11:54 | disposition home or self-care (01) ==
LOC: HO.HSMS 10:28
PROVIDERS: PCP Hospitalist; Visit Provider Nurse Practitioner Family
DX: G20.A1 Parkinson's disease without dyskinesia, without mention of fluctuations (principal); R26.9 Unspecified abnormalities of gait and mobility; R13.10 Dysphagia, unspecified
CPT/HCPCS: 99214